=== PATIENT | male | born 1995 | race Caucasian/White ===

== ENCOUNTER 2016-05-31 20:32 | Emergency (ER) | payer BC, MEDICAID ==
[~2016-05-31 20:32] MED LIST: ATIVAN PO; CIPRODEX OTIC7.5 ML OT; DEPAKOTE PO; DEPAKOTE500 MG PO; DESMOPRESSIN A0.2 MG; EPIPEN0.3 MG/0.1 IM; GEODON80 MG; GLUCOPHAGE1000 MG; GLUCOPHAGE1000 MG PO; GLUCOPHAGE500 MG PO; LEVOTHYROXINE100 MC1 PO; LORAZEPAM0.5 MG PO; METFORMIN PO; PREDNISONE20 MG PO; RISPERDAL PO; RISPERDAL3 M2 PO; SEROQUEL PO; SEROQUEL XR300 MG PO; SEROQUEL300 MG PO; ZITHROMAX250MG Z-PAK PO; [UNRECOGNIZED DRUG - REMARK]; [UNRECOGNIZED DRUG - REMARK]; [UNRECOGNIZED DRUG - REMARK]
[2016-05-31 21:33] LABS: BASO % 0.5 % (0-2); BASO ABSOLUTE COUNT 0.1 tho/cmm (0.0-0.2); EOS % 0.9 % (0-7); EOSINOPHIL ABSOLUTE COUNT 0.1 tho/cmm (0.0-0.7); HCT-HEMATOCRIT 38.2 % (36.0-53.5); HGB-HEMOGLOBIN 13.1 gm/dl (13.5-17.0); IMMATURE GRANULOCYTES ABSOLUTE 0.03 tho/cmm (0-0.03); IMMATURE GRANULOCYTES PERCENT 0.3 % (0-0.3); LYMPH % 35.6 % (20-45); LYMPH ABSOLUTE COUNT 3.6 tho/cmm (0.8-4.5); MCH (MEAN CORPUSCULAR HGB) 28.8 pg (28.0-32.0); MCHC MEAN CORPUSCULAR HGB CONC 34.3 % (32.0-36.0); MEAN PLATELET VOLUME 8.7 cmc (9.4-12.4); MONO % 5.9 % (0-12); MONOCYTE ABSOLUTE COUNT 0.6 tho/cmm (0.0-1.2); NEUTROPHIL ABSOLUTE COUNT 5.7 tho/cmm (1.6-8.0); NEUTROPHIL-AUTOMATED 5.7 tho/cmm (1.6-8.0); NEUTROPHILS % 56.8 % (40-80); PLATELET COUNT 239 tho/cmm (150-450); RED BLOOD COUNT 4.55 mil/cmm (4.40-5.70); RED CELL DISTRIBUTION WIDTH 13.6 % (12.4-16.4)
[2016-05-31 21:52] LABS: ANION GAP 14 mmol/L (0-20); BLOOD UREA NITROGEN 10 mg/dl (6-24); CALCIUM 8.5 mg/dl (8.5-10.5); CARBON DIOXIDE-VENOUS 24 mmol/L (22-32); CHLORIDE 108 mmol/l (96-110); CREATININE 0.75 mg/dl (0.60-1.30); GLUCOSE 95 mg/dL (70-110); POTASSIUM 3.7 mmol/L (3.7-5.1); SODIUM 142 mmol/L (135-145); eGFR VALUE FOR BLACK >90 mL/Min
[2016-11-09] MEDS ORDERED: MINIPRESS1 M1 PO (19:11)
[2016-11-09] MEDS ORDERED: NAPROSYN500 M1 PO (19:12)
[2016-11-09] MEDS ORDERED: TRAZODONE HCL50 M1 PO (19:14)
[2016-11-09] MEDS ORDERED: ZOLOFT100 M1 PO (19:14)
== END 2016-05-31 23:03 ==
LOC: EDMED 20:32
PROVIDERS: Emergency Medicine
DX: F41.0 Panic disorder [episodic paroxysmal anxiety] (principal); R07.89 Other chest pain; E11.9 Type 2 diabetes mellitus without complications; F39 Unspecified mood [affective] disorder; Z79.899 Other long term (current) drug therapy

== ENCOUNTER 2016-06-01 20:41 | Emergency (ER) | payer BC, MEDICAID ==
[2016-11-09] MEDS ORDERED: MINIPRESS1 M1 PO (19:11)
[2016-11-09] MEDS ORDERED: NAPROSYN500 M1 PO (19:12)
[2016-11-09] MEDS ORDERED: ZOLOFT100 M1 PO (19:14)
[2016-11-09] MEDS ORDERED: TRAZODONE HCL50 M1 PO (19:14)
== END 2016-06-01 22:59 | disposition other institution (70) ==
LOC: EDMED 20:41
DX: R45.851 Suicidal ideations (principal); R06.00 Dyspnea, unspecified; E03.9 Hypothyroidism, unspecified; Z87.891 Personal history of nicotine dependence; Z79.890 Hormone replacement therapy; Z79.899 Other long term (current) drug therapy